=== PATIENT | male | born 1980 | race Hispanic/Latino ===

== ENCOUNTER 2018-01-03 04:06 | Emergency (ER) | payer MEDICARE, OTHER ==
[~2018-01-03] VITALS: Ht 180.3 cm; Wt 145.1 kg
[~2018-01-03 04:06] MED LIST: DILANTIN100 MG PO; LEVAQUIN750 MG PO; NORCO 10-325 T1 EACH PO; POTASSIUM CHLO20 ME1 PO; Z XANAX MT; Z.0.DEPAKOTE500 MG MT; Z.0.DILANTIN100 MG MT; Z.0.EFFEXOR XR150 MG MT; Z.0.FLEXERIL10 MG MT; Z.0.LORTAB 10-5001 E MT; Z.0.LUNESTA3 MG; Z.0.SEROQUEL300 MG
[2018-01-03] MEDS ORDERED: ONDANSETRON HCL INJ 2 MG/ML VIAL IV STA (04:18)
[2018-01-03] MEDS ORDERED: HYDROMORPHONE 1MG/1ML INJ IV STA (04:18)
[2018-01-03 04:30] LABS: BASOPHILS % 0.6 % (0.0-1.0); EOSINOPHILS # (AUTO) 0.2 (0.0-0.4); EOSINOPHILS % 2.6 % (0.0-6.0); HEMATOCRIT 41.1 % (38.2-49.6); HEMOGLOBIN 14.1 g/dL (14.0-18.0); LYMPHOCYTES # (AUTO) 3.3 (1.0-3.2); LYMPHOCYTES % 48.8 % (18.0-39.1); MEAN CORPUSCULAR HGB CONC 34.3 g/dL (31-35); MEAN CORPUSCULAR VOLUME 84.6 fL (81-99); MONOCYTES # (AUTO) 0.5 (0.2-0.8); MONOCYTES % 6.9 % (4.4-11.3); NEUTROPHILS # (AUTO) 2.8 (2.1-6.9); NEUTROPHILS % 40.7 % (38.7-80.0); PLATELET COUNT 318 x10e3/uL (140-360); RED BLOOD COUNT 4.86 x10e6/uL (4.3-5.7); RED CELL DISTRIBUTION WIDTH 14.2 % (11.7-14.4)
[2018-01-03] MEDS ORDERED: SODIUM CHLORIDE 0.9% 1000ML 1,000 ML IV ONE (04:30)
[2018-01-03 04:43] LABS: ALANINE AMINOTRANSFERASE 48 IU/L (0-55); ALBUMIN 4.1 g/dL (3.5-5.0); ALBUMIN/GLOBULIN RATIO 1.2 (0.8-2.0); ALKALINE PHOSPHATASE 125 IU/L (40-150); ANION GAP 14.1 mmol/L (8-16); BLOOD UREA NITROGEN 10 mg/dL (7-26); BUN/CREATININE RATIO 11 (6-25); CALCIUM 9.1 mg/dL (8.4-10.2); CARBON DIOXIDE 30 mmol/L (22-29); CHLORIDE 104 mmol/L (98-107); CREATINE KINASE 153 IU/L (30-200); CREATININE, SERUM 0.92 mg/dL (0.72-1.25); EST GLOMERULAR FILTRATION RATE > 60 ML/MIN (60-); GLUCOSE 108 mg/dL (74-118); POTASSIUM 3.1 mmol/L (3.5-5.1); SODIUM 145 mmol/L (136-145)
[2018-01-03 04:50] LABS: VALPROIC ACID 21 ug/mL (50-100)
[2018-01-03] MEDS ORDERED: SODIUM CHLORIDE 0.9% 50ML 50 ML ONE (04:53)
[2018-01-03] MEDS ORDERED: IOPAMIDOL 370 MG/ML 200 ML INFUS..BTL INJ ONE (04:53)
[2018-01-03] MEDS ORDERED: POTASSIUM CHLORIDE 20 MEQ TAB CR PO STA (05:07)
[2018-01-03] MEDS ORDERED: DEPAKOTE ER 500MG TAB(ONCE DAILY) PO SCH (05:15)
--- NOTE | 2018-01-03 05:34 | Diagnostic Imaging Report ---
EXAM: CT ABDOMEN AND PELVIS with IV CONTRAST DATE: 01/03/2018 4:18 AM Time stamp on Exam: 0503 hours INDICATION: Fall, pain in right abdomen and lower back COMPARISON: None TECHNIQUE: The abdomen and pelvis were scanned using a multidetector helical scanner. Coronal and sagittal reformations were obtained. Routine protocol performed. IV Contrast: 100 cc Isovue-[id number] Oral Contrast: None CTDIvol has been reviewed. It is below the limits set by the Radiation Protocol Committee (RPC). FINDINGS: LOWER THORAX: No consolidations. Trace pericardial effusion. LIVER: No masses BILIARY: The gallbladder is unremarkable. No ductal dilation. SPLEEN: No masses PANCREAS: No masses ADRENALS: No nodules KIDNEYS: Symmetric perfusion. No enhancing masses. No hydronephrosis. Stone conglomerate in the inferior pole of the right kidney measuring 9 mm. No hydronephrosis. GI TRACT: No distention, wall thickening or evidence of obstruction. Sigmoid colon diverticulosis. Normal appendix. VESSELS: Unremarkable PERITONEUM/RETROPERITONEUM: No free air or fluid LYMPH NODES: No lymphadenopathy REPRODUCTIVE ORGANS: Unremarkable BLADDER: Unremarkable SOFT TISSUES: Unremarkable BONES: No fractures. IMPRESSION: No evidence of acute injury to the abdomen or pelvis. Signed by: Dr. Jannette Lund M.D. on 01/03/2018 5:30 AM
--- NOTE | 2018-01-03 05:53 | Diagnostic Imaging Report ---
EXAMINATION: Head CT without contrast. HISTORY:Seizure and fall. COMPARISON: CT head from 10/04/2019 TECHNIQUE: Multidetector axial images were obtained from the foramen magnum to the vertex without contrast. The images were reconstructed using brain and bone algorithms. Thin section brain images were reformatted into coronal and sagittal planes. Intravenous contrast: None IMAGE QUALITY: Acceptable. FINDINGS: Skull/scalp: No lytic or blastic. lesions. No surgical changes. Parenchyma: No abnormal density. No acute hemorrhage, mass or acute major vascular territorial infarct. Arteries: No density suggestive of thrombosis. Dural sinuses: No abnormal density suggestive of thrombosis. Ventricles: No hydrocephalus or displacement. Extra-axial spaces: No abnormal density. Brain volume: Normal for age. Craniocervical junction: No mass, Chiari malformation, or basilar invagination. Sella: No mass. Paranasal/mastoid sinuses: Imaged portions unremarkable. IMPRESSION: No intracranial abnormality. Signed by: Dr. Meena Parks M.D. on 01/03/2018 5:50 AM
[2018-01-03 06:16] VITALS: BP 130/62
== END 2018-01-03 06:17 | disposition home or self-care (01) ==
LOC: ER 04:06
DX: G40.909 Epilepsy, unspecified, not intractable, without status epilepticus (principal); E87.6 Hypokalemia
CPT/HCPCS: 36415; 70450; 74177; 80053; 80164; 80320; 82542; 82550; 82553; 84484; 85025; 99284; J1170; J2405; J7030; Q9967

== ENCOUNTER → 2018-01-21 | Outpatient (RCR) | payer MEDICARE, OTHER | LOC: WCC 09:37 | PROVIDERS: ATTEND Plastic Surgery | DX: K61.3 Ischiorectal abscess (principal); G89.21 Chronic pain due to trauma; T07.XXXA Unspecified multiple injuries, initial encounter; I10 Essential (primary) hypertension; E78.00 Pure hypercholesterolemia, unspecified; E66.01 Morbid (severe) obesity due to excess calories ==